=== PATIENT | male | born 1985 | race Caucasian/White ===

== ENCOUNTER 2017-06-03 12:09 | Emergency (ER) | payer OTHER, BC ==
[~2017-06-03] VITALS: Ht 182.9 cm; Wt 97.5 kg
[~2017-06-03 12:09] MED LIST: AMOX875T20 PO
[2017-06-03 12:12] VITALS: BP 165/96; PULSE 99; RESP 20; TEMP 99.5; O2SAT 97
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
[2017-06-03] MEDS ORDERED: IBUP1TAB7 PO (12:31)
[2017-06-03] MEDS ORDERED: ROBA500T PO (12:31)
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
[2017-06-03] MEDS ORDERED: METHOCARBAMOL 500 MG TAB PO ONE (12:45)
[2017-06-03] MEDS ORDERED: IBUPROFEN 800 MG TAB PO ONE (12:45)
== END 2017-06-03 13:04 | disposition home or self-care (01) ==
LOC: NEPK 12:09
DX: S40.011A Contusion of right shoulder, initial encounter (principal); F17.200 Nicotine dependence, unspecified, uncomplicated; W22.8XXA Striking against or struck by other objects, initial encounter
CPT/HCPCS: 99283